=== PATIENT | male | born 1995 | race Caucasian/White ===

== ENCOUNTER 2020-03-20 14:39 | Emergency (ER) | payer MEDICAID ==
[~2020-03-20] VITALS: Ht 157.5 cm; Wt 79.0 kg
[2020-03-20 14:41] VITALS: BP 122/84
[2020-03-20] MEDS ORDERED: LIDOCAINE HCL/PF 1% 10 MG/ML 5ML VIAL IJ ONE (15:15)
[2020-03-20] MEDS ORDERED: BACITRACIN ZINC OINT UDPKT TOP ONE (15:15)
[2020-03-20] MEDS ORDERED: IBUPROFEN 600MG TABLET PO ONE (15:45)
[2020-03-20] MEDS ORDERED: TETANUS, DIPHTHERIA, PERTUSSIS VAC/PF 0.5ML (>7YR OLD) IM ONE (16:00)
== END 2020-03-20 16:40 | disposition home or self-care (01) ==
LOC: ER 14:57
DX: S01.511A Laceration without foreign body of lip, initial encounter (principal); X58.XXXA Exposure to other specified factors, initial encounter; Y93.89 Activity, other specified; Y92.89 Other specified places as the place of occurrence of the external cause; Y99.8 Other external cause status
CPT/HCPCS: 12011; 90471; 90715; 99283; J3490